=== PATIENT | female | born 1980 | race Caucasian/White ===

== ENCOUNTER 2020-04-15 08:53 | Outpatient (CLI) | payer OTHER, SELFPAY ==
--- NOTE | ~2020-04-15 | CT_ITS ---
EXAMINATION: CT abdomen pelvis wo con EXAM DATE: 04/15/2020 09:19 INDICATION: R10.31 - Right lower quadrant pain. TECHNIQUE: Spiral CT of the abdomen and pelvis was performed without contrast. Axial, coronal and s agittal images were reviewed. The dose-length product (DLP) for this examination was 223.85 mGy-cm. The exposure was tailored according to patient size (auto mA exposure control), and iterative recons truction (ASIR) was used as additional dose reduction technique. There is no prior study for compari son. FINDINGS: The liver, spleen, adrenal glands and pancreas are unremarkable. Gallbladder is unremarkab le. No biliary obstruction. Small bilateral nephrolithiasis. Mild nonspecific inflammation surroundi ng the right kidney without obstructing stone identified. Could indicate recently passed stone, upper urinary tract infection or pyelonephritis. Correlate with urinalysis. The uterus and ovaries are unr emarkable, no adnexal mass. The bladder is unremarkable. There is no retroperitoneal or pelvic lymp hadenopathy. Probable identification of a normal appendix. No pericecal inflammation. The stomach and small esteban l are unremarkable. There is expected amount of colonic stool. No free intraperitoneal gas. The heart is normal in size. There are no pericardial or pleural effusions. The lung bases are unremark able. There are no osteoblastic or osteolytic lesions identified. IMPRESSION: Small bilateral nephrolithiasis. Fat stranding along the lower pole right kidney, may ind icate recently passed ureteral stone, upper urinary tract infection or pyelonephritis. No hydronephro sis. Correlate with urinalysis. Reviewed, dictated and finalized at location [facility] IMPRESSION: Small bilateral nephrolithiasis. Fat stranding along the lower pole right kidney, may indicate recently passed ureteral stone, upper urinary tract infection or pyelonephritis. No hydronephrosis. Correlate with urinalysis.
== END 2020-04-15 08:54 | disposition home or self-care (01) ==
PROVIDERS: PCP Family Medicine; Visit Provider Family Medicine
DX: R10.31 Right lower quadrant pain (principal); N20.0 Calculus of kidney
CPT/HCPCS: 74176

== ENCOUNTER 2023-05-10 11:27 | Outpatient (CLI) | payer OTHER, SELFPAY ==
--- NOTE | ~2023-05-10 | CT_ITS ---
EXAMINATION: CT abdomen pelvis wo con DATE: 05/10/2023 11:50 INDICATION: Left lower quadrant pain TECHNIQUE: Computed tomography (CT) of the abdomen and pelvis was performed without intravenous contr ast. The dose-length product was 295.90 mGy-cm. . Automated exposure control and iterative reconstruc tion technique were employed. COMPARISON: CT dated 04/15/2020. FINDINGS: Lung bases are unremarkable. Heart size normal. No significant pleural or pericardial effus ion. There are multiple punctate nonobstructing bilateral renal stones. There is thickening of the di stal descending colon with surrounding inflammation and diverticula, consistent with acute diverticul itis. No evidence for perforation or abscess. No free air or free fluid. Gallbladder is present. The liver, spleen, pancreas, adrenal glands are unremarkable. Small fat-containing umbilical hernia. No abnormal pelvic masses. Moderate lumbar spondylosis. IMPRESSION: 1. Acute uncomplicated diverticulitis of the distal descending colon. 2: Nonobstructing bilateral nephrolithiasis. Reviewed, dictated and finalized at location [facility]
== END 2023-05-10 11:28 | disposition home or self-care (01) ==
LOC: ANHIMG 11:36
PROVIDERS: PCP Family Medicine; Visit Provider Physician Assistant Medical
DX: K57.32 Diverticulitis of large intestine without perforation or abscess without bleeding (principal); N20.0 Calculus of kidney
CPT/HCPCS: 74176

== ENCOUNTER 2023-07-26 09:17 | Day surgery (SDC) | payer OTHER, SELFPAY ==
[2023-07-11 08:39] VITALS: BMI 20.9
--- NOTE | 2023-07-26 08:04 | WPDANESEPPF ---
Anes - Initial Pre Proc Eval Procedure: Operation Date: 07/26/23 12:00 Proposed Procedures p Diagnostic Colonoscopy - Paolo Guardado MD Date/Time: 07/26/23 08:04 Surgeon: Paolo Guardado MD Pre Op Diagnosis: diverticulitis Patient Data Age: 43 Gender: F Height: 1.68 m Weight: 58.967 kg Allergies Allergy/AdvReac Type Severity Reaction Status Date / Time Cephalosporins Allergy Severe RASH Verified 07/26/23 10:43 Home Medications Medication Instructions Recorded Confirmed Type lorazepam 0.5 mg tablet (Ativan) 0.5 mg PO TID PRN anxiety #10 tabs 12/27/22 07/26/23 Rx T3/T4 compounded 1 tab-cap BYMOUTH DAILY 06/14/23 07/26/23 History norethindrone acetate 1 mg-ethinyl 1 tablet PO DAILY #84 tabs 06/14/23 07/26/23 Rx estradiol 20 mcg tablet (Junel) testosterone 200mg 0.5 g percutaneous DIRECTED 06/14/23 07/26/23 History Patient hx anesthesia problems: none Family hx anesthesia problems: none Results Review: All pre-operative results and documents have been reviewed as part of the pre-operative evaluation. [facility] Past Medical History Medical History BIJAN (generalized anxiety disorder) Hypothyroid Palpitation Right foot pain Social History Social History (Updated 06/14/23 @ 11:24 by Cathy Rosales MA) Smoking status: Never smoker Second hand tobacco smoke exposure: No Alcohol intake: current Drinks per week: 1 Alcohol use details: rarely Substance use: never Substance use type: does not use Do You Feel Safe in your Home?: Yes Lack of Transportation: No Lack of Food: Never True Current Housing: I Have Housing Concerned About Future Housing: No Difficulty Paying Gas/Electric Bills: No Difficulty Paying for Meds: No Currently Unemployed: No Education: Bachelor's Degree Difficulty w/ Childcare or Family Care: No Living arrangements: with family Occupation/Education: occupation Gender identity (if verbalized by the patient): Female Sexual Orientation (if Verbalized by the Patient): Straight or Heterosexual Anes - Eval Final PreProcedure Day of Procedure 07/26/23 08:04 Patient weight: normal Heart: regular rate and rhythm Lungs: clear to auscultation and normal air movement Airway: Mallampati scale class II Neurological: alert and oriented Last oral intake: >/= 8 hours ASA classification: II Emergent: no Anesthetic plan: proceed Anesthesia type and monitoring: general GIVS and standard monitoring Results Review: All pre-operative results and documents have been reviewed as part of the pre-operative evaluation. Informed Consent: The patient's anesthetic plan and its attendant risks and benefits were discussed with the patient/family/POA. Questions were solicited and answers provided to the satisfaction of the patient/family/POA.
[2023-07-26 10:58] VITALS: BP 146/103; PULSE 75; RESP 20; TEMP 37.5; O2SAT 100; BMI 20.7
--- NOTE | 2023-07-26 11:03 | P.HP_ITS ---
History of Present Illness History of Present Illness Consent: Risks, benefits, and alternatives have been discussed and questions answered. Patient agrees to proceed with procedure. Chief complaint: diverticulitis Narrative: Tenisha Brown is a 43 year old female presents for colonoscopy. Patient was found to have diverticulitis in May of 2023. She wanted to the emergency room with left lower quadrant abdominal pain. CT scan suggested diverticulitis. Patient was treated with broad-spectrum. Her abdominal pain has resolved. Bowel habits remain normal. She has had no bleeding. Family history significant a sister may have had colon polyps Review of Systems Review of Systems: Review of systems is noncontributory. [facility] Past Medical History Medical History BIJAN (generalized anxiety disorder) Hypothyroid Palpitation Right foot pain Social History Social History (Updated 06/14/23 @ 11:24 by Cathy Rosales MA) Smoking status: Never smoker Second hand tobacco smoke exposure: No Alcohol intake: current Drinks per week: 1 Alcohol use details: rarely Substance use: never Substance use type: does not use Do You Feel Safe in your Home?: Yes Lack of Transportation: No Lack of Food: Never True Current Housing: I Have Housing Concerned About Future Housing: No Difficulty Paying Gas/Electric Bills: No Difficulty Paying for Meds: No Currently Unemployed: No Education: Bachelor's Degree Difficulty w/ Childcare or Family Care: No Living arrangements: with family Occupation/Education: occupation Gender identity (if verbalized by the patient): Female Sexual Orientation (if Verbalized by the Patient): Straight or Heterosexual Meds Home Medications and Allergies Home Medications Medication Instructions Recorded Confirmed Type lorazepam 0.5 mg tablet (Ativan) 0.5 mg PO TID PRN anxiety #10 tabs 12/27/22 07/26/23 Rx T3/T4 compounded 1 tab-cap BYMOUTH DAILY 06/14/23 07/26/23 History norethindrone acetate 1 mg-ethinyl 1 tablet PO DAILY #84 tabs 06/14/23 07/26/23 Rx estradiol 20 mcg tablet (Junel) testosterone 200mg 0.5 g percutaneous DIRECTED 06/14/23 07/26/23 History Allergies Allergy/AdvReac Type Severity Reaction Status Date / Time Cephalosporins Allergy Severe RASH Verified 07/26/23 10:43 Vital Signs Vital Signs - 24 hr 07/26/23 10:58 Temperature 99.5 F Pulse Rate 75 Respiratory Rate 20 Blood Pressure 146/103 H Pulse Oximetry 100 Oxygen Delivery Room Air Exam Narrative: Physical exam reveals patient vital signs stable. HEENT is unremarkable. Patient is anicteric. Lungs are clear to auscultation and to percussion extra sounds. Abdomen bowel sounds are present soft nontender with no organomegaly. Digital external rectal exam normal. Assessment and Plan Assessment and plan (1) Diverticulitis: Code(s): K57.92 - Diverticulitis of intestine, part unspecified, without perforation or abscess without bleeding Status: Acute Assessment and Plan: Patient had an episode of diverticulitis in May of 2023. This is now resolved. Plan for high-fiber diet. Screening colonoscopy advised for this
[2023-07-26] MEDS: LACTATED RINGERS 1,000 ML 150 ML IV CONT (11:07)
[2023-07-26 11:53] VITALS: BP 140/98; PULSE 68; RESP 22; O2SAT 100
[2023-07-26 12:03] VITALS: BP 130/96; PULSE 65; RESP 20; O2SAT 100
[2023-07-26 12:13] VITALS: BP 132/96; PULSE 70; RESP 18; O2SAT 100
--- NOTE | 2023-07-26 13:22 | WPDANESPN ---
Anes - Prog Note Post-Op Date/Time: 07/26/23 13:22 Cardiovascular status: normal Respiratory status: normal Airway patency: baseline Mental status: baseline Post-Op hydration status: normal Vital Signs: Last Vital Signs Temp 37.5 C 07/26/23 10:58 Pulse 70 07/26/23 12:13 Resp 18 07/26/23 12:13 BP 132/96 H 07/26/23 12:13 Pulse Ox 100 07/26/23 12:13 O2 Del Method Room Air 07/26/23 12:13 Pain Score (VAS): 0 I/O: Intake & Output 07/25/23 07/26/23 07/26/23 23:59 07:59 15:59 Intake Total 675 Balance 675 Post-procedural complaints: none Patient Feedback: Patient satisfied with anesthetic care. Other Findings: Patient vital signs back to baseline. Patient denies nausea and vomiting. Patient's pain under control. Patient OK for discharge.
== END 2023-07-26 12:22 | disposition home or self-care (01) ==
PROVIDERS: PCP Family Medicine; Visit Provider Internal Medicine Gastroenterology
PROC: 0DJD8ZZ Inspection of Lower Intestinal Tract, Via Natural or Artificial Opening Endoscopic (ICD-10-PCS; CPT 45378; principal; 2023-07-26 12:00)
DX: Z12.11 Encounter for screening for malignant neoplasm of colon (principal); K57.30 Diverticulosis of large intestine without perforation or abscess without bleeding; K64.8 Other hemorrhoids
CPT/HCPCS: 45378